=== PATIENT | male | born 1965 | race Caucasian/White ===

== ENCOUNTER 2016-03-16 10:25 | Emergency (ER) | payer OTHER ==
--- NOTE | 2016-03-16 11:40 | EDDOCDS ---
Nurse's Notes [facility] Name: Everett Pearson Age: 50 yrs Sex: Male : 1965 Arrival Date: 03/16/2016 Time: 10:25 Bed PD Private MD: NO PRIMARY PHYSICIAN, . Diagnosis: Crushing injury of right foot-WITH HEMATOMA Presentation: 03/16 10:29 Presenting complaint: Patient states: pain top of right foot. reports dropped trailer kr3 onto foot just prior to arrival to ED. Reports swelling to right foot began immediately. The patients lower extremity has obvious swelling present on examination. The patient has been moved to a treatment area. Adult Sepsis Screening: The patient does not have new or worsening altered mentation. Patient's respiratory rate is less than 22. Systolic blood pressure is greater than 100. Patient has a qSOFA score of 0- Negative Sepsis Screen. Suicide/Homicide risk assessment- the patient denies having any suicidal and/or homicidal ideations and does not present with any other emotional, behavioral or mental health complaints. 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 Transition of care: patient was not received from another setting of care. 10:29 Acuity: JULIANNA Level 4 kr3 10:29 Method Of Arrival: Wheelchair kr3 Triage Assessment: 10:31 General: Appears uncomfortable, Behavior is cooperative. Pain: Location: dorsum of kr3 right foot Pain currently is 5 out of 10 on a pain scale. Pt Declines HIV testing. Respiratory: Respiratory effort is even, unlabored. Derm: Skin is normal. Musculoskeletal: Capillary refill < 3 seconds other swelling to dorsum of right foot. 10:34 Injury Description: Abrasion sustained to dorsum of right foot. kr3 11:39 Musculoskeletal: No deficits noted. Reports. ml6 Historical: - Allergies: no known allergies; - Home Meds: 1. none - PMHx: none; - PSHx: right arm; - Social history: Smoking status: Patient states former smoker of tobacco. No barriers to communication noted, The patient speaks fluent Mongolian, Speaks appropriately for age. - Family history: Not pertinent. - : The pt / caregiver states he / she is not on anticoagulants. Home medication list is obtained from the patient. - Exposure Risk Screening:: None identified. Screenin:37 Screening information is obtained from the patient. Fall risk: No risks identified. ml6 Assistance ADL's: requires no assistance with activities of daily living. Abuse/DV Screen: The patient / caregiver reports he/she is: not in a situation that causes fear, pain or injury. Nutritional screening: No deficits noted. Advance Directives: Currently, there is no health care proxy. home support is adequate. Assessment: 11:37 General: Appears in no apparent distress, comfortable, Behavior is appropriate for age, ml6 cooperative. Pain: Denies pain. Neurological: No deficits noted. Level of Consciousness is awake, alert, Oriented to person, place, time. Cardiovascular: No deficits noted. Capillary refill < 3 seconds is brisk in bilateral fingers toes. Respiratory: No deficits noted. Airway is patent Respiratory effort is even, unlabored, Respiratory pattern is regular, symmetrical, Breath sounds are clear bilaterally. Musculoskeletal: Circulation, motion, and sensation intact Capillary refill < 3 seconds is brisk in bilateral fingers toes Range of motion intact in all extremities. No deformity noted Swelling absent Signs and Symptoms of Compartment Syndrome: no signs of compartment syndrome. Vital Signs: 10:28 BP 135 / 87; Pulse 59; Resp 16; Temp 98.8; Pulse Ox 97% ; Weight 88.9 kg; Height 5 ft. elp 11 in. (180.34 cm); Pain 5/10; 11:34 BP 127 / 68; Pulse 68; Resp 18; Temp 97.4(O); Pulse Ox 98% on R/A; Pain 0/10; ct3 10:28 Body Mass Index 27.34 (88.90 kg, 180.34 cm) elp Vitals: 10:28 Log In Time: March 16, 2016 at 10:26. elp ED Course: 10:27 Patient visited by Nichol Coe PCA. elp 10:27 Patient moved to Waiting elp 10:28 NO PRIMARY PHYSICIAN, . is Private Physician. elp 10:28 Patient visited by Nichol Coe PCA. elp 10:28 Patient moved to Pre RCE elp 10:31 Triage Initiated kr3 10:37 [facility] Carl[facility] dt4 10:37 Duane Jimenez MD is Attending Physician. dt4 10:37 Patient visited by Rubi Carlson PA-C. dt4 10:37 Patient moved to Triage 1 dsf 11:01 Patient moved to PD2 / 27 ct3 11:25 [facility] is Referral Physician. dt4 11:34 Patient visited by Laura Narayanan PCA. ct3 11:38 The patient / caregiver is instructed regarding the plan of care and ED course. ml6 11:38 No IV's were initiated during this patient's visit. No procedures done that require ml6 assistance. Order Results: There are currently no results for this order. Outcome: 11:26 Discharge ordered by Provider. dt4 11:38 Discharge Assessment: patient administered narcotics - no. The following High Risk ml6 Discharge criteria are identified: None. Discharged to home with crutches. Condition: stable. Discharge instructions given to patient, Instructed on discharge instructions, follow up and referral plans. medication usage, Demonstrated understanding of instructions, medications, Pt was receptive of discharge instructions/ teaching. Prescriptions given X 1. No special radiology studies were completed. Property :Personal belongings accompany Pt. 11:39 Patient left the ED. ml6 Signatures: Ro Betancourt,RN RN brien3 Brando Torres RN RN ml6 Laura Narayanan, ISSA TRANSMISSION AND COORDINATION ENGINEER ct3 Mya Gunderson RN RN [email or web address] [[email or web address]] Nichol Coe, TRANSMISSION AND COORDINATION ENGINEER TRANSMISSION AND COORDINATION ENGINEER Rubi Ba PA-C PA-C dt4 FRANCK
--- NOTE | 2016-03-16 11:40 | EDDOCDS ---
Physician Documentation [facility] Name: Everett Pearson Age: 50 yrs Sex: Male : 1965 Arrival Date: 03/16/2016 Time: 10:25 Bed PD Private MD: NO PRIMARY PHYSICIAN, . Disposition: 03/16/16 11:26 Discharged to Home/Self Care. Impression: Crushing injury of right foot - WITH HEMATOMA. - Condition is Stable. - Discharge Instructions: Crush Injury, Fingers or Toes. - Prescriptions for Ultram 50 mg Oral Tablet - take 1 tablet by ORAL route every 6 hours As needed MDD: 4 tabs; MAY CAUSE DROWSINESS. 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 - Medication Reconciliation, Local Pharmacy Hours form. - Follow up: Emergency Department; When: As needed; Reason: Worsening of conditions. Follow up: [facility]; When: Call to arrange an appointment; Reason: Recheck today's complaints, Continuance of care, To establish care. - Problem is new. - Symptoms are unchanged. - Notes: THERE WAS NO FRACTURE ON YOUR XRAYS TODAY. PLEASE USE THE CRUTCHES NEEDED FOR WEIGHT BEARING. START TO SLOWLY PUT WEIGHT ON THIS FOOT OVER THE NEXT FEW DAYS. KEEP THE JENARO WRAP ON WITH MODERATE COMPRESSION TO HELP THE SWELLING STAY MINIMAL. ANY WORSENING SYMPTOMS, PLEASE RETURN TO THE ER. Historical: - Allergies: no known allergies; - Home Meds: 1. none - PMHx: none; - PSHx: right arm; - Social history: Smoking status: Patient states former smoker of tobacco. No barriers to communication noted, The patient speaks fluent Togolese, Speaks appropriately for age. - Family history: Not pertinent. - : The pt / caregiver states he / she is not on anticoagulants. Home medication list is obtained from the patient. - Exposure Risk Screening:: None identified. Vital Signs: 03/16 10:28 BP 135 / 87; Pulse 59; Resp 16; Temp 98.8; Pulse Ox 97% ; Weight 88.9 kg / 195.99 lbs; elp Height 5 ft. 11 in. (180.34 cm); Pain 5/10; 11:34 BP 127 / 68; Pulse 68; Resp 18; Temp 97.4(O); Pulse Ox 98% on R/A; Pain 0/10; ct3 10:28 Body Mass Index 27.34 (88.90 kg, 180.34 cm) elp MDM: 10:34 Foot, Complete Ordered. EDMS 10:45 Financial registration complete. lg 11:24 Crutches ordered. dt4 11:24 Jenaro Wrap ordered. dt4 Signatures: Dispatcher [employer] EDRandy Otero, Tristian Reg lg Ro Betancourt,RN RN kr3 Brando Torres RN RN ml6 Rubi Carlson, PA-C PA-C dt4 MTDD
--- NOTE | 2016-03-16 14:36 | REP ---
Right foot series: Four views. History: Crush injury. Findings: Four views right foot demonstrate prominent soft tissue swelling dorsally over the tarsals and metatarsals on lateral film. Achilles and plantar calcaneal spurring are noted. Overall mineralization pattern is intact. No fracture is seen. Impression: Soft-tissue swelling. No fracture seen. Signed by Terry Tucker MD 03/16/2016 03:38 P
--- NOTE | 2016-03-18 12:47 | EDDOCDS ---
Physician Documentation [facility] Name: Everett Pearson Age: 50 yrs Sex: Male : 1965 Arrival Date: 03/16/2016 Time: 10:25 Bed PD Private MD: NO PRIMARY PHYSICIAN, . Disposition: 03/16/16 11:26 Discharged to Home/Self Care. Impression: Crushing injury of right foot - WITH HEMATOMA. - Condition is Stable. - Discharge Instructions: Crush Injury, Fingers or Toes. - Prescriptions for Ultram 50 mg Oral Tablet - take 1 tablet by ORAL route every 6 hours As needed MDD: 4 tabs; MAY CAUSE DROWSINESS. 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 - Medication Reconciliation, Local Pharmacy Hours form. - Follow up: Emergency Department; When: As needed; Reason: Worsening of conditions. Follow up: [facility]; When: Call to arrange an appointment; Reason: Recheck today's complaints, Continuance of care, To establish care. - Problem is new. - Symptoms are unchanged. - Notes: THERE WAS NO FRACTURE ON YOUR XRAYS TODAY. PLEASE USE THE CRUTCHES NEEDED FOR WEIGHT BEARING. START TO SLOWLY PUT WEIGHT ON THIS FOOT OVER THE NEXT FEW DAYS. KEEP THE JENARO WRAP ON WITH MODERATE COMPRESSION TO HELP THE SWELLING STAY MINIMAL. ANY WORSENING SYMPTOMS, PLEASE RETURN TO THE ER. Historical: - Allergies: no known allergies; - Home Meds: 1. none - PMHx: none; - PSHx: right arm; - Social history: Smoking status: Patient states former smoker of tobacco. No barriers to communication noted, The patient speaks fluent Dominican, Speaks appropriately for age. - Family history: Not pertinent. - : The pt / caregiver states he / she is not on anticoagulants. Home medication list is obtained from the patient. - Exposure Risk Screening:: None identified. Vital Signs: 03/16 10:28 BP 135 / 87; Pulse 59; Resp 16; Temp 98.8; Pulse Ox 97% ; Weight 88.9 kg / 195.99 lbs; elp Height 5 ft. 11 in. (180.34 cm); Pain 5/10; 11:34 BP 127 / 68; Pulse 68; Resp 18; Temp 97.4(O); Pulse Ox 98% on R/A; Pain 0/10; ct3 10:28 Body Mass Index 27.34 (88.90 kg, 180.34 cm) elp MDM: 10:34 Foot, Complete Ordered. EDMS 10:45 Financial registration complete. lg 11:24 Crutches ordered. dt4 11:24 Jenaro Wrap ordered. dt4 12:45 [place] [place] Agreement was scanned into [employer] and attached to record. lg 13:45 T-Sheet-- Draft Copy was scanned into MED[employer] and attached to record. se Signatures: Dispatcher [employer] EDNM Randy Mauricio, Reg Reg lg Ro Betancourt,RN RN kr3 Brando Torres, RN RN ml6 Rubi Carlson, NAUN MAGALLON dt4 Allie Overton The chart was reviewed and I authenticate all verbal orders and agree with the evaluation and treatment provided.Attachments: 12:45 [facility] Payment Agreement lg 13:45 T-Sheet-- Draft Copy [facility] Chart Complete MTDD
--- NOTE | 2016-03-18 12:47 | EDDOCDS ---
Physician Documentation [facility] Name: Everett Pearson Age: 50 yrs Sex: Male : 1965 Arrival Date: 03/16/2016 Time: 10:25 Bed PD Private MD: NO PRIMARY PHYSICIAN, . Disposition: 03/16/16 11:26 Discharged to Home/Self Care. Impression: Crushing injury of right foot - WITH HEMATOMA. - Condition is Stable. - Discharge Instructions: Crush Injury, Fingers or Toes. - Prescriptions for Ultram 50 mg Oral Tablet - take 1 tablet by ORAL route every 6 hours As needed MDD: 4 tabs; MAY CAUSE DROWSINESS. 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 - Medication Reconciliation, Local Pharmacy Hours form. - Follow up: Emergency Department; When: As needed; Reason: Worsening of conditions. Follow up: [facility]; When: Call to arrange an appointment; Reason: Recheck today's complaints, Continuance of care, To establish care. - Problem is new. - Symptoms are unchanged. - Notes: THERE WAS NO FRACTURE ON YOUR XRAYS TODAY. PLEASE USE THE CRUTCHES NEEDED FOR WEIGHT BEARING. START TO SLOWLY PUT WEIGHT ON THIS FOOT OVER THE NEXT FEW DAYS. KEEP THE JENARO WRAP ON WITH MODERATE COMPRESSION TO HELP THE SWELLING STAY MINIMAL. ANY WORSENING SYMPTOMS, PLEASE RETURN TO THE ER. Historical: - Allergies: no known allergies; - Home Meds: 1. none - PMHx: none; - PSHx: right arm; - Social history: Smoking status: Patient states former smoker of tobacco. No barriers to communication noted, The patient speaks fluent Maltese, Speaks appropriately for age. - Family history: Not pertinent. - : The pt / caregiver states he / she is not on anticoagulants. Home medication list is obtained from the patient. - Exposure Risk Screening:: None identified. Vital Signs: 03/16 10:28 BP 135 / 87; Pulse 59; Resp 16; Temp 98.8; Pulse Ox 97% ; Weight 88.9 kg / 195.99 lbs; elp Height 5 ft. 11 in. (180.34 cm); Pain 5/10; 11:34 BP 127 / 68; Pulse 68; Resp 18; Temp 97.4(O); Pulse Ox 98% on R/A; Pain 0/10; ct3 10:28 Body Mass Index 27.34 (88.90 kg, 180.34 cm) elp MDM: 10:34 Foot, Complete Ordered. EDMS 10:45 Financial registration complete. lg 11:24 Crutches ordered. dt4 11:24 Jenaro Wrap ordered. dt4 12:45 [place] [place] Payment Agreement was scanned into MEDHOST and attached to record. lg 13:45 T-Sheet-- Draft Copy was scanned into MEDHOST and attached to record. se Signatures: Dispatcher [employer] EDME Randy Mauricio, Reg Reg lg Ro Betancourt,RN RN kr3 Brando Torres, RN RN ml6 Rubi Carlson, NAUN MAGALLON dt4 Allie Overton The chart was reviewed and I authenticate all verbal orders and agree with the evaluation and treatment provided.Attachments: 12:45 [place] Payment Agreement lg 13:45 T-Sheet-- Draft Copy [facility] Chart Complete MTDD
--- NOTE | 2016-03-18 12:47 | EDDOCDS ---
Nurse's Notes [facility] Name: Everett Pearson Age: 50 yrs Sex: Male : 1965 Arrival Date: 03/16/2016 Time: 10:25 Bed PD Private MD: NO PRIMARY PHYSICIAN, . Diagnosis: Crushing injury of right foot-WITH HEMATOMA Presentation: 03/16 10:29 Presenting complaint: Patient states: pain top of right foot. reports dropped trailer kr3 onto foot just prior to arrival to ED. Reports swelling to right foot began immediately. The patients lower extremity has obvious swelling present on examination. The patient has been moved to a treatment area. Adult Sepsis Screening: The patient does not have new or worsening altered mentation. Patient's respiratory rate is less than 22. Systolic blood pressure is greater than 100. Patient has a qSOFA score of 0- Negative Sepsis Screen. Suicide/Homicide risk assessment- the patient denies having any suicidal and/or homicidal ideations and does not present with any other emotional, behavioral or mental health complaints. Status: Patient is not a service writer or dependent. Transition of care: patient was not received from another setting of care. 10:29 Acuity: JULIANNA Level 4 kr3 10:29 Method Of Arrival: Wheelchair kr3 Triage Assessment: 10:31 General: Appears uncomfortable, Behavior is cooperative. Pain: Location: dorsum of kr3 right foot Pain currently is 5 out of 10 on a pain scale. Pt Declines HIV testing. Respiratory: Respiratory effort is even, unlabored. Derm: Skin is normal. Musculoskeletal: Capillary refill < 3 seconds other swelling to dorsum of right foot. 10:34 Injury Description: Abrasion sustained to dorsum of right foot. kr3 11:39 Musculoskeletal: No deficits noted. Reports. ml6 Historical: - Allergies: no known allergies; - Home Meds: 1. none - PMHx: none; - PSHx: right arm; - Social history: Smoking status: Patient states former smoker of tobacco. No barriers to communication noted, The patient speaks fluent Czech, Speaks appropriately for age. - Family history: Not pertinent. - : The pt / caregiver states he / she is not on anticoagulants. Home medication list is obtained from the patient. - Exposure Risk Screening:: None identified. Screenin:37 Screening information is obtained from the patient. Fall risk: No risks identified. ml6 Assistance ADL's: requires no assistance with activities of daily living. Abuse/DV Screen: The patient / caregiver reports he/she is: not in a situation that causes fear, pain or injury. Nutritional screening: No deficits noted. Advance Directives: Currently, there is no health care proxy. home support is adequate. Assessment: 11:37 General: Appears in no apparent distress, comfortable, Behavior is appropriate for age, ml6 cooperative. Pain: Denies pain. Neurological: No deficits noted. Level of Consciousness is awake, alert, Oriented to person, place, time. Cardiovascular: No deficits noted. Capillary refill < 3 seconds is brisk in bilateral fingers toes. Respiratory: No deficits noted. Airway is patent Respiratory effort is even, unlabored, Respiratory pattern is regular, symmetrical, Breath sounds are clear bilaterally. Musculoskeletal: Circulation, motion, and sensation intact Capillary refill < 3 seconds is brisk in bilateral fingers toes Range of motion intact in all extremities. No deformity noted Swelling absent Signs and Symptoms of Compartment Syndrome: no signs of compartment syndrome. Vital Signs: 10:28 BP 135 / 87; Pulse 59; Resp 16; Temp 98.8; Pulse Ox 97% ; Weight 88.9 kg; Height 5 ft. elp 11 in. (180.34 cm); Pain 5/10; 11:34 BP 127 / 68; Pulse 68; Resp 18; Temp 97.4(O); Pulse Ox 98% on R/A; Pain 0/10; ct3 10:28 Body Mass Index 27.34 (88.90 kg, 180.34 cm) elp Vitals: 10:28 Log In Time: March 16, 2016 at 10:26. elp ED Course: 10:27 Patient visited by Nichol Coe PCA. elp 10:27 Patient moved to Waiting elp 10:28 NO PRIMARY PHYSICIAN, . is Private Physician. elp 10:28 Patient visited by Nichol Coe PCA. elp 10:28 Patient moved to Pre RCE elp 10:31 Triage Initiated kr3 10:37 [facility] Carl[facility]. dt4 10:37 Duane Jimenez MD is Attending Physician. dt4 10:37 Patient visited by Rubi Carlson PA-C. dt4 10:37 Patient moved to Triage 1 dsf 11:01 Patient moved to PD2 / ct3 11:25 [facility] is Referral Physician. dt4 11:34 Patient visited by Laura Narayanan PCA. ct3 11:38 The patient / caregiver is instructed regarding the plan of care and ED course. ml6 11:38 No IV's were initiated during this patient's visit. No procedures done that require ml6 assistance. 12:40 Patient name changed from Everett\S\A\S\Rubyor\S\ to Everett\S\Baudilio\S\Rubyor. EDMS 12:45 [place] Payment Agreement was scanned into Bookit[employer] and attached to record. 13:45 T-Sheet-- Draft Copy was scanned into Bookitit and attached to record. [facility] 14:39 Foot, Complete Returned. EDMS Order Results: Radiology Order: Foot, Complete Test: Foot, Complete REASON FOR EXAMINATION: crush injury; Right foot series: Four views.; ; History: Crush injury.; ; Findings: Four views right foot demonstrate prominent soft tissue swelling; dorsally over the tarsals and metatarsals on lateral film. Achilles and plantar; calcaneal spurring are noted. Overall mineralization pattern is intact. No; fracture is seen.; ; Impression:; ; Soft-tissue swelling. No fracture seen.; ; ; Signed by; Terry Tucker MD 03/16/2016 03:38 P; Outcome: 11:26 Discharge ordered by Provider. dt4 11:38 Discharge Assessment: patient administered narcotics - no. The following High Risk ml6 Discharge criteria are identified: None. Discharged to home with crutches. Condition: stable. Discharge instructions given to patient, Instructed on discharge instructions, follow up and referral plans. medication usage, Demonstrated understanding of instructions, medications, Pt was receptive of discharge instructions/ teaching. Prescriptions given X 1. No special radiology studies were completed. Property :Personal belongings accompany Pt. 11:39 Patient left the ED. ml6 Signatures: Dispatcher [employer] EDKY Randy Mauricio Reg Reg lg Robie, Kathleen, RN RN kr3 Barndo Torres RN RN ml6 Laura Narayanan PCA SYSTEMS PLANNER ct3 Mya Gunderson RN RN dsf Patchen, Erin, PCA PCA elp Rubi Carlson, PA-C PA-C dt4 Allie Overton Chart Complete MTDD
== END 2016-03-16 11:39 | disposition home or self-care (01) ==
LOC: M ED 10:25
DX: S97.81XA Crushing injury of right foot, initial encounter (principal); W22.8XXA Striking against or struck by other objects, initial encounter; Y92.89 Other specified places as the place of occurrence of the external cause; Y93.89 Activity, other specified; Y99.8 Other external cause status; Z87.891 Personal history of nicotine dependence

== ENCOUNTER → 2018-05-30 | Outpatient (CLI) | payer OTHER ==
--- NOTE | 2018-05-30 15:00 | REP ---
CHEST, TWO VIEWS: There is no evidence of acute infiltrate. No pleural effusion is seen. The heart is normal in size. The mediastinal silhouette is unremarkable. The visualized osseous structures are intact. IMPRESSION: No acute pulmonary disease. Electronically Signed by Ric Mcginnis MD 05/30/2018 06:20 P
== END ==
LOC: M RAD 12:29
PROVIDERS: ATTEND Nurse Practitioner Family
DX: R05 Cough (principal)

== ENCOUNTER 2018-09-25 09:04 | Emergency (ER) | payer MEDICAID, OTHER ==
[~2018-09-25] VITALS: Ht 180.3 cm; Wt 93.2 kg
[2018-09-25 09:47] LABS: BASO % 0.4 % (0.0-1.0); EOS # 0.4 10^3/uL (0.0-0.50); EOS % 5.8 % (0.0-3.0); HEMATOCRIT 48.5 % (42.0-52.0); HEMOGLOBIN 15.7 g/dl (13.5-17.5); LYMPH # 1.1 10^3/uL (1.5-4.5); LYMPH % 14.9 % (24.0-44.0); MEAN CORPUSCULAR HEMOGLOBIN 30.8 pg (27.0-33.0); MEAN CORPUSCULAR HGB CONC 32.4 g/dl (32.0-36.5); MEAN CORPUSCULAR VOLUME 95.3 fl (80.0-96.0); MONO # 0.5 10^3/uL (0.0-0.8); MONO % 7.5 % (0.0-5.0); NEUTROPHILS # 5.1 10^3/uL (1.8-7.7); NEUTROPHILS % 71.1 % (36.0-66.0); PLATELET COUNT, AUTOMATED 200 10^3/uL (150-450); RED BLOOD COUNT 5.09 10^6/uL (4.30-6.10); WHITE BLOOD COUNT 7.2 10^3/uL (4.0-10.0)
--- NOTE | 2018-09-25 10:08 | REP ---
CHEST SINGLE VIEW: There is no evidence of acute infiltrate. No pleural effusion is seen. The heart is normal in size. The mediastinal silhouette is unremarkable. The visualized osseous structures are intact. IMPRESSION: No acute pulmonary disease. Electronically Signed by Ric Mcginnis MD 09/26/2018 09:18 P
[2018-09-25 10:15] LABS: ALBUMIN 3.7 GM/DL (3.2-5.2); ALT/SGPT 40 U/L (12-78); BILIRUBIN,DIRECT < 0.1 MG/DL (0.0-0.2); BILIRUBIN,TOTAL 0.3 MG/DL (0.2-1.0); BLOOD UREA NITROGEN 17 MG/DL (7-18); CALCIUM LEVEL 8.4 MG/DL (8.5-10.1); CARBON DIOXIDE LEVEL 25 MEQ/L (21-32); CHLORIDE LEVEL 108 MEQ/L (98-107); CK-MB VALUE MASS 11.1 NG/ML (<3.6); CPK CREATINE PHOSPHOKINASE 912 U/L (39-308); CREATININE FOR GFR 0.88 MG/DL (0.70-1.30); GLOMERULAR FILTRATION RATE > 60.0 (>56); GLUCOSE, FASTING 135 MG/DL (70-100); MB/CK RELATIVE INDEX 1.22 (< OR =4); NT-PRO BNP 119 PG/ML (<125); SODIUM LEVEL 141 MEQ/L (136-145); TOTAL PROTEIN 7.5 GM/DL (6.4-8.2); TROPONIN I < 0.02 NG/ML (< 0.10)
[2018-09-25] MEDS ORDERED: IPRATROPIUM 0.5MG/ALBUTEROL 2.5MG INH SOL UD 3ML (DUONEB)(J7620) NEB ONE ×2 (10:15→11:30)
[2018-09-25] MEDS ORDERED: ALBUTEROL SULFATE 2.5 MG/0.5 ML INH NEB SOLN NEB ONE (10:15)
[2018-09-25] MEDS ORDERED: ISOVUE-370 76% 100ML VIAL (Q9967) As Ordered ONE (10:26)
[2018-09-25] MEDS ORDERED: NS 1,000 ML IV ONE (11:30)
[2018-09-25] MEDS ORDERED: MOXIFLOXACIN HCL 400 MG in APPROPRIATE DILUENT 1 EA IV ONE (11:45)
[2018-09-25] MEDS ORDERED: methylPREDNISolone INJ 40 MG/1 ML VIAL (J2920) IV ONE (11:45)
[2018-09-25] MEDS ORDERED: EPIN11.7 IH (11:48)
[2018-09-25] MEDS ORDERED: PROAAER10 INH (11:48)
[2018-09-25] MEDS ORDERED: CEFU50TA PO (11:48)
--- NOTE | 2018-09-25 11:56 | REP ---
CT NECK WITH IV CONTRAST: CT neck performed following the intravenous administration of 100 mL of Isovue 370. Sagittal and coronal reconstruction images are performed. Airway is widely patent with no significant narrowing. Scattered subcentimeter lymph nodes are seen in the neck soft tissues bilaterally without significant adenopathy. Parotid and submandibular glands are unremarkable as is the thyroid. Note is made of diffuse opacification of bilateral ethmoid sinuses consistent with significant sinusitis. There is also mild fluid in both maxillary sinuses. There is mild mucosal thickening in the sphenoid and frontal sinuses. IMPRESSION: Airway widely patent. No significant airway narrowing. No evidence of epiglottitis. Significant ethmoid sinusitis with mild bilateral maxillary sinusitis. There is also mild mucosal thickening in the frontal and sphenoid sinuses. Electronically Signed by Ric Mcginnis MD 09/26/2018 09:23 P
--- NOTE | 2018-09-25 12:02 | REP ---
CT ANGIOGRAM CHEST: TECHNIQUE: Axial contrast enhanced images from the thoracic inlet to the upper abdomen using 100 mL Isovue 370 intravenous contrast material with multiplanar reformations. The study is limited due to patient breathing motion. No gross central pulmonary embolism is seen. There is no thoracic aortic aneurysm or dissection. I do not see significant mediastinal, hilar, or chest wall lymphadenopathy. The heart is normal in size. There is no pleural or pericardial effusion. In the lingula inferiorly, there is a small patch of parenchymal opacity representing atelectasis or infiltrate. Visualized upper abdominal structures are grossly unremarkable. IMPRESSION: Limited exam due to patient breathing motion. No central pulmonary embolism. Focal patch of atelectasis or infiltrate in the lingula. Electronically Signed by Ric Mcginnis MD 09/26/2018 09:36 P
[2018-09-25 13:27] VITALS: BP 145/69
[2018-09-25] MEDS ORDERED: MOXI1TAB PO (13:31)
[2018-09-25] MEDS ORDERED: PRED20TA PO (13:31)
--- NOTE | 2018-09-25 19:16 | ECGEPIP ---
[facility] - ED Test Date: 2018-09-25 Pat Name: TOMÁS ORJO Department: Room: - Gender: Male [employer]: : 1965 Requested By: Duane Jimenez Order Number: [id number] Reading MD: Duane Jimenez Measurements Intervals Hoven Rate: 69 P: 54 ID: [id number] QRS: 59 QRSD: 103 T: 66 QT: 419 QTc: 450 Interpretive Statements SINUS RHYTHM NONSPECIFIC ST T WAVE CHANGES BASELINE ARTIFACT MAY AFFECT READING BASELINE WANDERING MAY AFFECT READING IVCD NO PRIOR ECG FOR COMPARISON Electronically Signed on 09-25-2018 19:15:55 EDT by Duane Jimenez
== END 2018-09-25 13:41 | disposition home or self-care (01) ==
LOC: M ED 09:56
DX: J45.909 Unspecified asthma, uncomplicated (principal); R06.00 Dyspnea, unspecified; J18.9 Pneumonia, unspecified organism; I45.4 Nonspecific intraventricular block; E11.9 Type 2 diabetes mellitus without complications; Z72.0 Tobacco use; Z79.899 Other long term (current) drug therapy
CPT/HCPCS: 36600; 70491; 71045; 71275; 80048; 80076; 82550; 82553; 82803; 83605; 83880; 84436; 84443; 85025; 87040; 87486; 87581; 87633; 87798; 93005; 93041; 94640; 96365; 96375; 99285; J2280; J2920; Q9967

== ENCOUNTER 2018-10-30 16:42 | Emergency (ER) | payer MEDICAID ==
[~2018-10-30] VITALS: Ht 182.9 cm; Wt 95.7 kg
[~2018-10-30 16:42] MED LIST: CEFU50TA PO; EPIN11.7 IH; MOXI1TAB PO; PRED20TA PO; PROAAER10 INH
[2018-10-30] MEDS: FLUORESCEIN OPHTH 1 MG STRIP OU ONE (17:29)
[2018-10-30] MEDS: TETRACAINE 0.5% OPHTH SOLN 4ML XX ONE (17:29)
[2018-10-30] MEDS ORDERED: OCUF0.25 OP (17:50)
[2018-10-30] MEDS ORDERED: ARTIDRO2 OP (17:50)
[2018-10-30 18:20] VITALS: BP 138/81
== END 2018-10-30 18:30 | disposition home or self-care (01) ==
LOC: M ED 16:42
DX: H16.133 Photokeratitis, bilateral (principal); E11.9 Type 2 diabetes mellitus without complications

== ENCOUNTER 2019-07-09 08:41 | Inpatient (IN) | payer MEDICAID, OTHER ==
[~2019-07-09] VITALS: Ht 179.1 cm; Wt 99.8 kg
[~2019-07-09 08:41] MED LIST changes: +OCUF0.25 OP; +POLYOPD OP
[2019-07-09] MEDS: COMBIVENT RESPIMAT 100-20MCG INHALER 4GM INH PRN ×4 (09:20→09:40)
--- NOTE | 2019-07-09 09:28 | REP ---
Clinical: Cough and dyspnea . Comparison: 09/25/2018 . Findings: The mediastinum and cardiac silhouette are stable and within normal limits for portable technique. The lung moran are clear without acute consolidation, effusion, or pneumothorax. Skeletal structures are intact. Impression: No acute cardiopulmonary process appreciated. Electronically Signed by Geo Cueva MD 07/09/2019 09:20 A
[2019-07-09] MEDS ORDERED: dexameTHASONE 20MG/5ML VIAL (J1100 PER 1MG) IV ONE (09:30)
[2019-07-09 09:39] LABS: BASO % 0.3 % (0.0-1.0); EOS # 0.6 10^3/uL (0.0-0.5); EOS % 8.3 % (0.0-3.0); HEMATOCRIT 50.8 % (42.0-52.0); HEMOGLOBIN 16.4 g/dl (13.5-17.5); LYMPH # 1.6 10^3/uL (1.5-5.0); LYMPH % 24.4 % (24.0-44.0); MEAN CORPUSCULAR HEMOGLOBIN 30.9 pg (27.0-33.0); MEAN CORPUSCULAR HGB CONC 32.3 g/dl (32.0-36.5); MEAN CORPUSCULAR VOLUME 95.8 fl (80.0-96.0); MONO # 0.5 10^3/uL (0.0-0.8); MONO % 7.4 % (0.0-5.0); NEUTROPHILS % 59.3 % (36.0-66.0); PLATELET COUNT, AUTOMATED 238 10^3/uL (150-450); WHITE BLOOD COUNT 6.7 10^3/uL (4.0-10.0)
[2019-07-09 10:10] LABS: ALBUMIN 3.5 GM/DL (3.2-5.2); ALT/SGPT 40 U/L (12-78); BILIRUBIN,DIRECT 0.1 MG/DL (0.0-0.2); BILIRUBIN,TOTAL 0.5 MG/DL (0.2-1.0); BLOOD UREA NITROGEN 13 MG/DL (7-18); CALCIUM LEVEL 8.4 MG/DL (8.5-10.1); CARBON DIOXIDE LEVEL 29 MEQ/L (21-32); CHLORIDE LEVEL 107 MEQ/L (98-107); CK-MB VALUE MASS 4.3 NG/ML (<3.6); CPK CREATINE PHOSPHOKINASE 323 U/L (39-308); CREATININE FOR GFR 0.83 MG/DL (0.70-1.30); GLOMERULAR FILTRATION RATE > 60.0 (>56); GLUCOSE, FASTING 134 MG/DL (70-100); MB/CK RELATIVE INDEX 1.33 (< OR =4); NT-PRO BNP 14 PG/ML (<125); POTASSIUM SERUM 4.5 MEQ/L (3.5-5.1); SODIUM LEVEL 142 MEQ/L (136-145); TOTAL PROTEIN 7.4 GM/DL (6.4-8.2); TROPONIN I < 0.02 NG/ML (< 0.10)
[2019-07-09 12:23] VITALS: O2SAT 92
[2019-07-09] MEDS ORDERED: PROAAER10 INH (12:55)
[2019-07-09] MEDS ORDERED: IPRATROPIUM 0.5MG/ALBUTEROL 2.5MG INH SOL UD 3ML (DUONEB)(J7620) NEB PRN (13:00)
[2019-07-09] MEDS ORDERED: ISOVUE-370 76% 100ML VIAL As Ordered ONE (13:26)
[2019-07-09 13:58] LABS: HEMOGLOBIN A1c 7.1 %
--- NOTE | 2019-07-09 13:59 | REP ---
Clinical: Acute chest pain and shortness of breath . Technique: Axial contrast enhanced images from the thoracic inlet to the upper abdomen using 75 ml Isovue 370 intravenous contrast material with coronal and sagittal re-formations. Comparison: 09/25/2018 Findings: Satisfactory enhancement of the pulmonary vasculature is achieved and no filling defects are identified to suggest pulmonary embolus. Thoracic aorta is normal caliber without aneurysm or dissection. Heart and pericardium are normal. Mildly prominent mediastinal and bilateral hilar adenopathy is suggested of uncertain etiology. The bilateral lung moran are relatively well aerated and without focal consolidation, obvious nodule or mass lesion. No pleural effusion. No pneumothorax. Tracheobronchial tree is patent. Impression: No evidence for pulmonary embolus. No acute pleuroparenchymal or mediastinal process. Mildly prominent mediastinal and hilar adenopathy of uncertain etiology. Consider short-term 3-6 month follow-up reevaluation. Electronically Signed by Geo Cueva MD 07/09/2019 01:50 P
[2019-07-09] MEDS ORDERED: MONTELUKAST 10 MG TAB PO ONE (14:00)
[2019-07-09] MEDS: IPRATROPIUM 0.5MG/ALBUTEROL 2.5MG INH SOL UD 3ML (DUONEB)(J7620) NEB SCH ×3 (14:27→23:26)
[2019-07-09 14:49] LABS: CPK CREATINE PHOSPHOKINASE 287 U/L (39-308); MB/CK RELATIVE INDEX 1.39 (< OR =4); TROPONIN I < 0.02 NG/ML (< 0.10)
[2019-07-09 15:45] VITALS: BP 142/64
[2019-07-09] MEDS: methylPREDNISolone INJ 125 MG/2 ML VIAL (J2930) IV SCH ×2 (16:09→22:57)
--- NOTE | 2019-07-09 17:54 | HPE ---
DATE OF ADMISSION: 07/09/2019 CHIEF COMPLAINT: Shortness of breath. HISTORY OF PRESENT ILLNESS: This is a 53-year-old male with prior history of diabetes, diet controlled, not on any medications, prior history of three packs a day smoking. Quit about 20 years ago. Was due to have pulmonary function tests (PFTs) done as outpatient last year due to shortness of breath experienced occasionally, requiring treatment with prednisone and inhalers and antibiotics but missed it because her sister got sick with cancer. Since then, patient has not had any followup with a animal shelter clerk and never had any pulmonary function testing done as outpatient. He now presents to the emergency room after recurrent shortness of breath with dyspnea on exertion, recently seen at [facility] about 2 weeks ago and given an inhaler and antibiotics due to overt wheezing. Patient now presents with worsening symptoms despite 2-hour inhaler treatment at home. No fever or chills but has a cough productive of white sputum, which has changed. Patient was raking outside, when he developed a shortness of breath which worsened about 3 weeks ago. Now he has dyspnea on exertion. Unable to sleep. He is able to walk about 25 feet but has had significant trouble breathing. Saturation was 89% on room air in the emergency room (ER). Chest x-ray was clear with no signs of infection, consolidation, infiltrate, pulmonary edema, or pneumothorax. BNP was 14. Cardiac markers: Troponin was less than 0.02, and EKG was normal, sinus rhythm, ventricular rate of [address]-T-wave changes. Hospitalist was called to admit for reactive airway disease, potentially chronic obstructive pulmonary disease (COPD) versus asthma. Patient says that he has had some improvement with nebulizer in the emergency room. He is saturating 92% on room air currently. Patient otherwise denies any nausea, vomiting, diarrhea, abdominal pain, headaches, changes in vision, rhinorrhea, coryza, chest pain, pressure, or tightness, palpitations, lightheadedness, or dizziness. No prior history of coronary artery disease (CAD), myocardial infarction ([place]), or congestive heart failure. No lower extremity edema paresthesias or weakness. Patient denies any bright red blood per rectum, melena, or black, tarry stools. Denies polyuria or polydipsia. Had a prior history of diabetes but no on medications and has been diet controlled. Denies any dysuria, urgency, frequency, anxiety, depression. No over-the counter use of medications. Patient denied any exposure to birds, recent travel, or exposure to anyone with COVID-19. PAST MEDICAL HISTORY: 1. Prior history of diabetes, but that has been diet controlled, on no medications. 2. Obesity, body mass index (BMI) of 30.9. 3. Hypertension, not on medications. PAST SURGICAL HISTORY: Right humeral fracture as a child. ALLERGIES: No known drug allergies. HOME MEDICATIONS: - inhaler, albuterol 2 puffs every 4 hours - Completed antibiotics. He does not remember what antibiotic was given to him. ALLERGIES: No known drug allergies. FAMILY HISTORY: Father , age 49, coronary artery disease (CAD), myocardial infarction ([place]). Mother alive with diabetes. Son with asthma. Four sisters are healthy. One son, one daughter. Works in construction. Currently unemployed. Previously smoked three packs a day of cigarettes. Quit about 20 years ago. Worked in construction. is the healthcare proxy. He is a full code. REVIEW OF SYSTEMS: Per history of present illness (HPI). A 12-point system otherwise negative. PHYSICAL EXAMINATION: Temperature 98.0, pulse 72, respiratory rate 24, blood pressure 195/99, 89% on room air. GENERAL: Patient is awake, alert, oriented times three. Missing some teeth. Poor dentition. No jugular venous distention (JVD), thyromegaly. No pallor or icterus. Patient does have a 5-6 word conversational dyspnea. No use of respiratory accessory muscles. LUNGS: Diminished. Bilateral wheezing. HEART: S1, S2, sinus rhythm. No murmurs, rubs, or gallops. ABDOMEN: Obese, soft, nontender, nondistended. EXTREMITIES: No cyanosis, clubbing, or pitting edema EKG: Sinus rhythm, ventricular rate of 72, HI interval 153, QRS 102, QT3 of 89, QTC 412. White count 6.7, hemoglobin 60, hematocrit 50, platelet count 238, 59% neutrophils, 8.3 eosinophils. Sodium 142, potassium 4.5, chloride 107, bicarbonate 29, BUN 13, creatinine 0.83, glucose of 134. Lactic acid 1.4, calcium 8.4. Total bilirubin 0.5, direct bilirubin 0.1, ALT 40, alkaline phosphatase 119. Total CK 323, MB fraction 4.3, relative index 1.33, troponin less than 0.02. BNP of 14. Total protein 7.4, albumin 3.5. COVID-19 is pending. Blood culture pending. Respiratory panel is negative. COVID-19 pending. Sputum Gram stain pending. Chest x-ray: No acute cardiopulmonary disease. ASSESSMENT AND PLAN: This is a 53-year-old male with a prior history of type 2 diabetes, diet controlled, on no medications, hypertension, obesity, body mass index (BMI) of 30.9 with probably obstructive sleep apnea, 30 pack-year history of smoking. Quit 20 years ago. Missed his appointment for PFTs at [facility] a year ago, presents to the emergency room with multiple episodes of shortness of breath for the past 3 weeks, treated at [facility] 2 weeks ago with antibiotics and inhaler with worsening symptoms. ACUTE ISSUES: 1. Reactive airway disease. Most likely secondary to COPD, acute onset with bronchitis versus asthma. Patient currently improved, on nebulizer treatments and Decadron. He will be continued on Solu-Medrol, nebulizer treatments, and oxygen saturation to be kept at 88% to 92%. Discontinue oxygen if oxygen saturation is greater than 88% on room air with ambulation. Patient will be given Flovent, IV Solu-Medrol 80 every 6 hours. No antibiotics, as patient has no signs of acute infectious process. 2. Exertional dyspnea, most likely related to asthma or COPD. Will need PFTs as outpatient due to history of smoking. We are also concerned about ischemic heart disease due to risk factor of age over 52, being male gender, BMI of 30, as well as prior history of smoking and diabetes. Therefore, will check A1c level, better control the patient's blood pressure. If persistently over 130, will need an antihypertensive medication, most likely hydrochlorothiazide or an angiotensin receptor tamir (ARB). 3. Prior history of diabetes. Will check A1c. Patient's glucose at this time prior to Decadron being given is 134. Patient may be diabetic. Will change the diet if A1c is greater than 6.5 and will need to add insulin sliding scale with before food/at bedtime fingersticks with coverage. 4. Obesity, BMI of 30.9. Will check lipid panel. Thyroid-stimulating hormone (TSH) is normal. Will check A1c to rule out metabolic syndrome. Patient is at risk of obstructive sleep apnea and cor pulmonale. Therefore, patient should have a sleep study as outpatient. 5. Abnormal cardiac markers. EKG has no acute ischemic changes. Therefore, will cycle cardiac markers every 8 hours or every 6 hours, depending on patient's ischemic symptoms. He does have risk factors for heart disease, being male gender, BMI of 30, prior history of diabetes, smoking, and hypertension with family history of CAD/[place] with his father dying at the age of 49. 6. Deep vein thrombosis (DVT) prophylaxis with compression stockings. MTDD
[2019-07-09] MEDS: FLUTICASONE HFA 110 MCG 12 GM INHALER (FLOVENT) INH SCH (19:24)
--- NOTE | 2019-07-09 19:29 | ECGEPIP ---
[facility] - ED Test Date: 2019-07-09 Pat Name: TOMÁS ROJO Department: Room: [place] [address] Gender: Male Early Morning: martell : 1965 Requested By: MARK REESE Order Number: [id number] Reading MD: Duane Jimenez Measurements Intervals [place] Rate: 72 P: 42 [place]: 153 QRS: 53 QRSD: 102 T: 60 QT: 389 QTc: 426 Interpretive Statements SINUS RHYTHM NONSPECIFIC ST T WAVE CHANGES IVCD 09/25/[address] T WAVE CHANGES Electronically Signed on 07-09-2019 19:29:30 EDT by Duane Jimenez
[2019-07-09 21:37] LABS: CPK CREATINE PHOSPHOKINASE 268 U/L (39-308); MB/CK RELATIVE INDEX 1.49 (< OR =4); TROPONIN I < 0.02 NG/ML (< 0.10)
[2019-07-09 22:00] VITALS: BP 132/82
[2019-07-10] MEDS: IPRATROPIUM 0.5MG/ALBUTEROL 2.5MG INH SOL UD 3ML (DUONEB)(J7620) NEB SCH ×6 (02:55→23:34)
[2019-07-10] MEDS: methylPREDNISolone INJ 125 MG/2 ML VIAL (J2930) IV SCH ×4 (04:13→21:45)
[2019-07-10 05:33] LABS: BASO % 0.1 % (0.0-1.0); HEMATOCRIT 44.8 % (42.0-52.0); HEMOGLOBIN 15.1 g/dl (13.5-17.5); LYMPH # 0.8 10^3/uL (1.5-5.0); LYMPH % 8.5 % (24.0-44.0); MEAN CORPUSCULAR HEMOGLOBIN 31.8 pg (27.0-33.0); MEAN CORPUSCULAR HGB CONC 33.7 g/dl (32.0-36.5); MEAN CORPUSCULAR VOLUME 94.3 fl (80.0-96.0); MONO # 0.2 10^3/uL (0.0-0.8); MONO % 1.9 % (0.0-5.0); NEUTROPHILS # 8.6 10^3/uL (1.5-8.5); NEUTROPHILS % 89.1 % (36.0-66.0); PLATELET COUNT, AUTOMATED 255 10^3/uL (150-450); RED BLOOD COUNT 4.75 10^6/uL (4.30-6.10); WHITE BLOOD COUNT 9.7 10^3/uL (4.0-10.0)
[2019-07-10 05:56] LABS: CHOLESTEROL RISK RATIO 4.196 (<5)
[2019-07-10 06:00] VITALS: BP 141/80
[2019-07-10 06:13] LABS: BLOOD UREA NITROGEN 20 MG/DL (7-18); CALCIUM LEVEL 8.7 MG/DL (8.5-10.1); CARBON DIOXIDE LEVEL 26 MEQ/L (21-32); CHLORIDE LEVEL 106 MEQ/L (98-107); CPK CREATINE PHOSPHOKINASE 224 U/L (39-308); CREATININE FOR GFR 0.89 MG/DL (0.70-1.30); GLOMERULAR FILTRATION RATE > 60.0 (>56); GLUCOSE, FASTING 204 MG/DL (70-100); MB/CK RELATIVE INDEX 1.79 (< OR =4); POTASSIUM SERUM 3.6 MEQ/L (3.5-5.1); SODIUM LEVEL 139 MEQ/L (136-145); TROPONIN I < 0.02 NG/ML (< 0.10)
[2019-07-10] MEDS: FLUTICASONE HFA 110 MCG 12 GM INHALER (FLOVENT) INH SCH ×2 (07:10→19:38)
[2019-07-10] MEDS: MONTELUKAST 10 MG TAB PO SCH (08:50)
[2019-07-10] MEDS ORDERED: guaiFENesin DM LIQ 10ML UD PO ONE (09:00)
[2019-07-10 09:22] LABS: THYROID STIMULATING HORMONE 0.538 uIU/ML (0.358-3.740)
[2019-07-10 14:00] VITALS: BP 174/74
[2019-07-10 14:35] LABS: CK-MB VALUE MASS 4.9 NG/ML (<3.6); CPK CREATINE PHOSPHOKINASE 266 U/L (39-308); MB/CK RELATIVE INDEX 1.84 (< OR =4); TROPONIN I < 0.02 NG/ML (< 0.10)
[2019-07-10] MEDS: guaiFENesin DM LIQ 10ML UD PO PRN ×2 (15:29→21:45)
[2019-07-10] MEDS ORDERED: PRED10TA2 PO (15:47)
[2019-07-10] MEDS ORDERED: MONT10TA4 PO (15:47)
[2019-07-10] MEDS ORDERED: FLUT11IN INH (15:47)
[2019-07-10] MEDS ORDERED: QVAR40AE12 INH (16:03)
[2019-07-10 22:00] VITALS: BP 138/68
[2019-07-10] MEDS ORDERED: RAMELTEON 8 MG TAB (ROZEREM) PO SCH (22:00)
[2019-07-11] MEDS: IPRATROPIUM 0.5MG/ALBUTEROL 2.5MG INH SOL UD 3ML (DUONEB)(J7620) NEB SCH ×3 (03:11→11:14)
[2019-07-11] MEDS: methylPREDNISolone INJ 125 MG/2 ML VIAL (J2930) IV SCH (04:11)
[2019-07-11 05:52] LABS: BASO % 0.1 % (0.0-1.0); HEMATOCRIT 41.8 % (42.0-52.0); MEAN CORPUSCULAR HEMOGLOBIN 31.4 pg (27.0-33.0); MEAN CORPUSCULAR HGB CONC 33.5 g/dl (32.0-36.5); MEAN CORPUSCULAR VOLUME 93.7 fl (80.0-96.0); MONO # 0.6 10^3/uL (0.0-0.8); MONO % 4.6 % (0.0-5.0); NEUTROPHILS # 11.9 10^3/uL (1.5-8.5); NEUTROPHILS % 87.6 % (36.0-66.0); PLATELET COUNT, AUTOMATED 231 10^3/uL (150-450); RED BLOOD COUNT 4.46 10^6/uL (4.30-6.10); WHITE BLOOD COUNT 13.6 10^3/uL (4.0-10.0)
[2019-07-11 06:00] VITALS: BP 129/81
[2019-07-11 06:13] LABS: BLOOD UREA NITROGEN 22 MG/DL (7-18); CALCIUM LEVEL 8.2 MG/DL (8.5-10.1); CARBON DIOXIDE LEVEL 26 MEQ/L (21-32); CHLORIDE LEVEL 107 MEQ/L (98-107); CREATININE FOR GFR 0.87 MG/DL (0.70-1.30); GLOMERULAR FILTRATION RATE > 60.0 (>56); GLUCOSE, FASTING 217 MG/DL (70-100); POTASSIUM SERUM 3.9 MEQ/L (3.5-5.1); SODIUM LEVEL 143 MEQ/L (136-145)
[2019-07-11] MEDS: FLUTICASONE HFA 110 MCG 12 GM INHALER (FLOVENT) INH SCH (07:21)
[2019-07-11] MEDS ORDERED: predniSONE 20 MG TAB PO SCH (09:00)
[2019-07-11] MEDS: MONTELUKAST 10 MG TAB PO SCH (09:36)
--- NOTE | 2019-07-11 09:54 | ECHO ---
DATE OF STUDY: 07/09/2019 REFERRING PHYSICIAN: Dr. Guerra INDICATION: Dyspnea. HEIGHT: 178 cm. WEIGHT: 98 kg. DIMENSIONS: IVS: 1.2 LV: 4.5 LVPW: 1.2 LA: 2.9 Aorta: 3.0 IVC: 1.8 Mitral E wave velocity: 88 A wave: 75 E prime septal: 10.1 E prime lateral: 10.4 FINDINGS: The study is of technical quality corresponding to the patient's body habitus. The patient is in sinus rhythm. Left ventricle is normal size and normal contractility, estimated ejection fraction (EF) is around 60-65%. I do not appreciate any segmental wall motion abnormalities based on fair visualization. Mild left ventricular hypertrophy (LVH) is noted. The right ventricle is normal size and systolic function. Both atria appear normal. All four cardiac valves were reasonably well seen and appear normal. No pericardial effusion is noted. Inferior vena cava is normal size and appropriately collapses with inspiration corresponding to normal central venous pressure. Aortic root and aortic arch appear normal, abdominal aorta was not well visualized. Doppler interrogation reveals competent mitral, aortic, tricuspid and pulmonic valves. Mitral inflow pattern and tissue Doppler imaging of mitral annulus reveal normal diastolic function. CONCLUSIONS: 1. Study is of fair technical quality, the patient is in sinus rhythm. 2. Normal LV size with normal LV systolic function and probably normal diastolic function. Mild LVH. 3. No valvular disease. 4. Normal central venous pressure. 5. Unable to estimate pulmonary artery pressure, but no indications of pulmonary hypertension. COMMENT: Subacute bacterial endocarditis (SBE) prophylaxis is not recommended. Essentially normal echocardiogram, but for LVH, not providing obvious answers for dyspnea.
--- NOTE | 2019-07-11 14:31 | IPN ---
DATE OF SERVICE: 07/10/2019 The patient says that his breathing is much improved overnight. He still continues to have occasional wheezing. No dyspnea on exertion, chest pain, pressure or tightness. He still continues to have cough productive of white thick sputum. No consolidation or infiltrate on x-ray. The patient has some mediastinal and hilar lymphadenopathy of uncertain etiology with recommendation for 3 to 6 month followup as outpatient. Currently, no nausea or vomiting. No fever or chills overnight. Temperature 98.1, pulse 98, respiratory rate 19, blood pressure 141/80, 92% on room air. Generally awake, alert, oriented to person, place and time. Answering questions appropriately. No conversational dyspnea. The patient is able to speak in full sentences. No jugular venous distention (JVD) or thyromegaly. Some missing teeth, but moist mucous membranes. Lungs are clear. Diminished, but with occasional faint expiratory wheezing. Improved significantly, improved from yesterday. Heart: S1, S2. Sinus rhythm. Abdomen soft, obese, nontender, nondistended, positive bowel sounds times four quadrants. No rebound or guarding. No hepatosplenomegaly. No abdominal bruit. Extremities: No cyanosis or clubbing. LABORATORY DATA: White count 9.7, hemoglobin 15, hematocrit 44, platelet count 255. Sodium 139, potassium 3.6, chloride 106, bicarbonate 26, BUN 20, creatinine 0.89, glucose of 204. Blood culture negative after 24 hours. Sputum culture pending. Respiratory panel negative. COVID-[address] of chest shows prominent mediastinal and hilar lymphadenopathy of uncertain etiology. Recommend followup in 3-6 months. ASSESSMENT AND PLAN: This is a 53-year-old male with history of diet controlled diabetes, obesity with body mass index (BMI) of 30.9, hypertension not on medications, with prior history of smoking three packs a day with no diagnosis of chronic obstructive pulmonary disease or emphysema as he has missed his appointment last year for PFTs at [facility] and who has not requested a subsequent appointment, who presented with worsening shortness and breath and wheezin, found to have reactive airway disease, most likely secondary to chronic obstructive pulmonary disease which is new onset versus asthma. The patient has responded well to nebulizer treatments, Solu-Medrol, and supplemental oxygen. The patient has been given Flovent. Clinically improving, but still with significant wheezing. May transition to oral prednisone in the morning with possible discharge if stable. The patient is currently 92% on room air. No antibiotics needed as there is no acute infection on the imaging studies. No fever or chills. Awaiting sputum culture result. The patient will need PFTs and referral to [facility]. Mediastinal and hilar lymphadenopathy. Repeat CT of chest as outpatient. Obesity. BMI of 31. Prior history of diabetes. A1c is elevated at 7.1, will need to have a repeat A1c or another fasting metabolic panel in the morning. However, patient may be developing steroid induced hyperglycemia here which would be an inaccurate diagnosis at this time, therefore, will defer to primary care physician to recheck as outpatient. History of dyslipidemia. Currently with LDL of 146. Patient would prefer not to take any medications. Therefore will defer to primary care to recheck in 3 months time after diet and exercise. Deep vein thrombosis (DVT) prophylaxis with compression stockings. DISPOSITION: Discharge in the morning if stable overnight after transitioning to oral prednisone in the morning. MTDD
--- NOTE | 2019-07-13 10:47 | DSES ---
DATE OF ADMISSION: 07/09/2019 DATE OF DISCHARGE: 07/11/2019 PRIMARY DISCHARGE DIAGNOSES: 1. Reactive airway disease. 2. Incidental finding of mediastinal and hilar lymphadenopathy which will require repeat CT chest and referral to [facility] for further workup. 3. Prior history of smoking, [id number] history, currently nonsmoker. 4. Obesity, body mass index (BMI) of 30.9. 5. Prior history of diabetes, currently with a 7.1 A1c. The patient is to have a repeat A1c or fasting glucose to confirm diabetes. 6. Steroid-induced leukocytosis. DISCHARGE MEDICATIONS: - prednisone taper - albuterol ProAir HFA two puffs every 4 - QVAR two puffs twice a day - montelukast 10 daily DISCHARGE INSTRUCTIONS: The patient is to be seen by his primary care physician this week in order to refer to [facility] for pulmonary function tests (PFTs) and further evaluation of the mediastinal and hilar lymphadenopathy. To recheck the patient's A1c or fasting glucose to confirm diabetes. HOSPITAL COURSE: This is a 53-year-old male, prior history of smoking, 30-pack years, quit many years ago, presented with 3-week history of dyspnea on exertion. Dyspnea was initially noted when he was raking some leaves. Treated with albuterol and antibiotics as outpatient by urgent care. Presents with worsening symptoms. The patient was found to be 89% on room air. Chest x-ray showed no acute infiltrate. He had overt wheezing on examination and admitted for reactive airway disease. The patient says that he was due to have PFTs done last year but missed the appointment as he was helping his sister who was diagnosed at that time with cancer. He has not had any followup with PFTs or [facility] referral since then. He was admitted for reactive airway disease. Responded well to intravenous (IV) Solu-Medrol and nebulizer treatments. CT chest to rule out pulmonary embolism (PE) was negative, but he did have findings of prominent mediastinal and hilar lymphadenopathy of unknown etiology with recommendations for repeat CT chest in 3-6 months for followup. The patient was instructed to have a pulmonary referral as outpatient. He did well and remained 94% to 97% on room air. Wheezing had improved. He was transitioned to oral prednisone. He passed a home safety evaluation and was subsequently discharged home. Evaluation included negative respiratory panel. Sputum culture was still pending. Blood cultures were negative. COVID-19 was negative. He did develop steroid-induced leukocytosis, for which there were no clinical implications. He was afebrile. Cardiac markers were negative. The patient did have A1c checked, which was 7.1. Due to steroids in his systems, we could not diagnose him with diabetes and will require a second occasion where A1c or fasting glucose would have to be abnormal to diagnose with diabetes. The patient was subsequently discharged home in stable condition. PHYSICAL EXAMINATION ON DISCHARGE: 97.6, pulse 88, respiratory rate 20, blood pressure 129/81, 94% on room air. Generally, the patient is awake, alert, oriented times three, answering questions appropriately. Lungs are clear to auscultation. No wheezing, rales, or rhonchi. Heart: S1, S2, sinus rhythm. Abdomen is obese, soft, nontender, nondistended. Extremities: No cyanosis or clubbing. LABORATORY DATA: White count 13.6, hemoglobin 14, hematocrit 41, platelet count 231. Sodium 143, potassium 3.9, chloride 107, bicarbonate 26, BUN 22, creatinine 0.87, glucose of 217. Two sets of blood cultures negative. Sputum culture pending. Respiratory panel pending. COVID-[address] chest: Mild prominent mediastinal and hilar adenopathy of unknown etiology. Consider short-term 3-6-month followup reevaluation. TIME SPENT ON DISCHARGE: 30 minutes.
== END 2019-07-11 12:09 | disposition home or self-care (01) | DRG 141 ==
LOC: M ED 08:41 → M ED INP 12:48 → ENRESERV 14:39 → M MSPAV 15:52
PROVIDERS: ADMIT General Practice; ATTEND General Practice
DX: J45.901 Unspecified asthma with (acute) exacerbation (principal); I10 Essential (primary) hypertension; E11.9 Type 2 diabetes mellitus without complications; E66.9 Obesity, unspecified; Z87.891 Personal history of nicotine dependence; D72.829 Elevated white blood cell count, unspecified; Z68.30 Body mass index [BMI] 30.0-30.9, adult

== ENCOUNTER → 2019-08-02 | Outpatient (REF) | payer OTHER ==
[~2019-08-02] MED LIST changes: +FLUT11IN INH; +MONT10TA4 PO; +PRED10TA2 PO; +QVAR40AE12 INH
[2019-08-08 11:07] LABS: ASPERGILLUS FUMIGATUS AB Negative (Negative); AUREOBASIDIUM PULLULANS Negative (Negative); MICROPOLYSPORA FAENI AB Negative (Negative); PIGEON SERUM AB Negative (Negative); THERMOACTINOMYCES SACCHARI Negative (Negative); THERMOACTINOMYCES VULGARIS Negative (Negative)
== END ==
LOC: M LAB REF 16:39
PROVIDERS: ATTEND Internal Medicine Pulmonary Disease
DX: R91.8 Other nonspecific abnormal finding of lung field (principal)

== ENCOUNTER → 2019-08-23 | Outpatient (CLI) | payer MEDICAID, OTHER ==
[~2019-08-23] MED LIST changes: +METHACHOLINE KIT (J7674) INH ONE
== END ==
LOC: M CARPUL 07:20
PROVIDERS: ATTEND Internal Medicine Pulmonary Disease
DX: R06.00 Dyspnea, unspecified (principal); Z53.9 Procedure and treatment not carried out, unspecified reason

== ENCOUNTER → 2019-09-01 | Outpatient (REF) | payer OTHER ==
[~2019-09-01] MED LIST changes: -METHACHOLINE KIT (J7674) INH ONE
[2019-09-01 18:07] LABS: BASO % 0.4 % (0.0-1.0); EOS # 0.1 10^3/uL (0.0-0.5); EOS % 1.2 % (0.0-3.0); HEMATOCRIT 44.1 % (42.0-52.0); HEMOGLOBIN 14.4 g/dl (13.5-17.5); LYMPH # 3.2 10^3/uL (1.5-5.0); LYMPH % 39.6 % (24.0-44.0); MEAN CORPUSCULAR HGB CONC 32.7 g/dl (32.0-36.5); MONO # 0.6 10^3/uL (0.0-0.8); MONO % 7.6 % (0.0-5.0); NEUTROPHILS # 4.1 10^3/uL (1.5-8.5); NEUTROPHILS % 50.7 % (36.0-66.0); PLATELET COUNT, AUTOMATED 240 10^3/uL (150-450); RED BLOOD COUNT 4.64 10^6/uL (4.30-6.10); WHITE BLOOD COUNT 8.2 10^3/uL (4.0-10.0)
[2019-09-08 12:11] LABS: D001-IgE D pteronyssinus <0.10 kU/L (Class 0); E001-IgE Cat Epith/Dander < 0.10 kU/L (Class 0); E005-IgE Dog Dander < 0.10 kU/L (Class 0); G002-IgE Bermuda Grass < 0.10 kU/L (Class 0); G008-IgE Kentucky Bluegrass < 0.10 kU/L (Class 0); M001-IgE Penicillium chrysogen < 0.10 kU/L (Class 0); M002 IgE Cladosporium herbaru < 0.10 kU/L (Class 0); M003 IgE Aspergillus fumigatu < 0.10 kU/L (Class 0); M006-IgE Alternaria alternata < 0.10 kU/L (Class 0); T001-IgE Maple/Box Elder < 0.10 kU/L (Class 0); T003-IgE Common Silver Birch < 0.10 kU/L (Class 0); T006-IgE Cedar, Mountain < 0.10 kU/L (Class 0); T007-IgE Oak, White < 0.10 kU/L (Class 0); T008-IgE Elm, American < 0.10 kU/L (Class 0); T015-IgE Ash, White < 0.10 kU/L (Class 0); T041-IgE Hickory, White < 0.10 kU/L (Class 0); T070-IgE White Mulberry < 0.10 kU/L (Class 0); W001-IgE Ragweed, Short < 0.10 kU/L (Class 0); W009-IgE Plantain, English < 0.10 kU/L (Class 0); W014-IgE Pigweed, Rough < 0.10 kU/L (Class 0); W018-IgE Sheep Sorrel < 0.10 kU/L (Class 0)
== END ==
LOC: M LAB REF 17:05
PROVIDERS: ATTEND Internal Medicine Pulmonary Disease
DX: J45.40 Moderate persistent asthma, uncomplicated (principal)

== ENCOUNTER → 2020-01-26 | Outpatient (CLI) | payer OTHER ==
[~2020-01-26] MED LIST changes: +ISOVUE-370 76% 100ML VIAL As Ordered ONE
[2020-01-26 12:47] LABS: BLOOD UREA NITROGEN 19 MG/DL (7-18); CREATININE FOR GFR 0.86 MG/DL (0.70-1.30); GLOMERULAR FILTRATION RATE > 60.0 (>56)
--- NOTE | 2020-01-28 07:46 | REP ---
INDICATION: OTHER NONSPECIFIC ABN FINDINGS OF LUNG FIELD COMPARISON: 07/09/2019, 09/25/2018 TECHNIQUE: Axial contrast enhanced images from the thoracic inlet to the upper abdomen with coronal and sagittal reformations using 75 ml Isovue 370 intravenous contrast material. This CT examination was performed using the following dose reduction techniques: Automated exposure control, adjustment of mA and/or kv according to the patient's size, and use of iterative reconstruction technique. FINDINGS: The bilateral lung moran are relatively well aerated and clear with minimal posterior basilar dependent changes noted. No consolidation, suspicious nodule or mass lesion. No pleural effusion or pneumothorax. Tracheobronchial tree is patent. No axillary, hilar, or mediastinal adenopathy (previously noted adenopathy on 07/09/2019 has resolved). Minimal atherosclerotic changes to the thoracic aorta and coronary arteries noted without aortic aneurysm, dissection or cardiomegaly. No pericardial effusion. Surrounding musculoskeletal structures are intact and without acute osseous abnormality. Limited upper abdomen demonstrates normal bilateral adrenal glands along with hepatosteatosis. IMPRESSION: 1. Normal contrast-enhanced chest CT. No acute mediastinal or pleuroparenchymal process. No adenopathy. 2. Hepatosteatosis. <Electronically signed by Geo Cueva > 01/28/20 [id number]
== END ==
LOC: M RAD 10:15
PROVIDERS: ATTEND Internal Medicine Pulmonary Disease
DX: R91.8 Other nonspecific abnormal finding of lung field (principal); K76.0 Fatty (change of) liver, not elsewhere classified; I70.0 Atherosclerosis of aorta
CPT/HCPCS: 36415; 71260; 82565; 84520; Q9967

== ENCOUNTER → 2020-01-26 | Outpatient (CLI) | payer OTHER ==
[~2020-01-26] MED LIST changes: -ISOVUE-370 76% 100ML VIAL As Ordered ONE
[2020-01-26 13:13] LABS: HEMOGLOBIN A1c 6.4 %
== END ==
LOC: M LAB 10:17
PROVIDERS: ATTEND Student in an Organized Health Care Education/Training Program
DX: E11.9 Type 2 diabetes mellitus without complications (principal)

== ENCOUNTER → 2020-02-10 | Outpatient (CLI) | payer OTHER, SELFPAY ==
[~2020-02-10] MED LIST changes: +ATOR1TAB21 PO; +FLUT1INH3 INH; +METF10004 PO; -MONT10TA4 PO; +MONT5TAB2 PO
== END ==
LOC: M LABSMTC 11:30
PROVIDERS: ATTEND Anesthesiology
DX: Z01.812 Encounter for preprocedural laboratory examination (principal); Z20.828 Contact with and (suspected) exposure to other viral communicable diseases

== ENCOUNTER 2020-02-15 08:50 | Day surgery (SDC) | payer OTHER ==
[~2020-02-15] VITALS: Ht 177.8 cm; Wt 93.0 kg
[~2020-02-15 08:50] MED LIST changes: +NS 1,000 ML IV ONE
[2020-02-15] MEDS ORDERED: propofoL 200 MG/20 ML VIAL As Ordered ONE ×2 (10:27→10:49)
[2020-02-15] MEDS ORDERED: LIDOCAINE 2% 100MG/5ML SDV (FOR ANES.) As Ordered ONE (10:27)
--- NOTE | 2020-02-15 10:59 | ROOR ---
Patient Name: Everett Pearson Procedure Date: 02/15/2020 10:38 AM Date of : 1965 Age: 54 Room: [facility] Gender: Male Note Status: Finalized Procedure: Colonoscopy Indications: Screening for colorectal malignant neoplasm Providers: DO Aleena Gramajo MD: Rashmi Millery-1 Franck Requesting Provider: Medicines: Propofol per Anesthesia Complications: No immediate complications. Procedure: Pre-Anesthesia Assessment: - Prior to the procedure, a History and Physical was performed, and patient medications and allergies were reviewed. The patient is competent. The risks and benefits of the procedure and the sedation options and risks were discussed with the patient. All questions were answered and informed consent was obtained. Patient identification and proposed procedure were verified by the physician, the nurse, the associate consulting engineer and the profile grinder technician in the endoscopy suite. Mental Status Examination: alert and oriented. Airway Examination: normal oropharyngeal airway and neck mobility. Respiratory Examination: clear to auscultation. CV Examination: normal. ASA Grade Assessment: II - A patient with mild systemic disease. After reviewing the risks and benefits, the patient was deemed in satisfactory condition to undergo the procedure. The anesthesia plan was to use monitored anesthesia care (MAC). Immediately prior to administration of medications, the patient was re-assessed for adequacy to receive sedatives. The heart rate, respiratory rate, oxygen saturations, blood pressure, adequacy of pulmonary ventilation, and response to care were monitored throughout the procedure. The physical status of the patient was re-assessed after the procedure. The Colonoscope was introduced through the anus and advanced to the cecum, identified by appendiceal orifice and ileocecal valve. The colonoscopy was performed without difficulty. The patient tolerated the procedure well. Findings: Non-bleeding internal hemorrhoids were found during retroflexion. The hemorrhoids were Grade I (internal hemorrhoids that do not prolapse). Multiple small-mouthed diverticula were found in the entire colon. Estimated blood loss: none. Impression: - Non-bleeding internal hemorrhoids. - Diverticulosis in the entire examined colon. - No specimens collected. Recommendation: - Patient has a contact number available for emergencies. The signs and symptoms of potential delayed complications were discussed with the patient. Return to normal activities tomorrow. Written discharge instructions were provided to the patient. - Repeat colonoscopy in 5-10 years for screening purposes. - Return to my office PRN. Procedure Code(s): --- Professional --- G0121, Colorectal cancer screening; colonoscopy on individual not meeting criteria for high risk Diagnosis Code(s): --- Professional --- Z12.11, Encounter for screening for malignant neoplasm of colon K64.0, First degree hemorrhoids K57.30, Diverticulosis of large intestine without perforation or abscess without bleeding CPT copyright 2019 [employer]. All rights reserved. The codes documented in this report are preliminary and upon foundry metallurgist review may be revised to meet current compliance requirements. Ric Luis DO 02/15/2020 10:58:39 AM Electronically signed by Ric Luis DO Number of Addenda: 0 Note Initiated On: 02/15/2020 10:38 AM Estimated Blood Loss: Estimated blood loss: none.
[2020-02-15 11:25] VITALS: BP 120/73
== END 2020-02-15 11:36 | disposition home or self-care (01) ==
LOC: M OPP 08:50
PROVIDERS: ATTEND Surgery
DX: Z12.11 Encounter for screening for malignant neoplasm of colon (principal); K57.30 Diverticulosis of large intestine without perforation or abscess without bleeding; K64.8 Other hemorrhoids; Z79.84 Long term (current) use of oral hypoglycemic drugs; Z79.899 Other long term (current) drug therapy; Z87.891 Personal history of nicotine dependence

== ENCOUNTER → 2024-01-28 | Outpatient (REF) | payer OTHER ==
[~2024-01-28] MED LIST changes: +ARTIDRO4 OP; -FLUT11IN INH; +FLUT12AE6 INH; +MONT10TA97 PO; -MONT5TAB2 PO; -NS 1,000 ML IV ONE; -POLYOPD OP
== END ==
LOC: M LAB REF 12:14
PROVIDERS: ATTEND Nurse Practitioner Family
DX: R30.0 Dysuria (principal); R31.9 Hematuria, unspecified

== ENCOUNTER → 2025-02-11 | Outpatient (REF) | payer OTHER ==
[2025-02-11 18:31] LABS: APPEARANCE, URINE CLOUDY (CLEAR); BACTERIA, URINE AUTO 1+ (NEGATIVE); BILIRUBIN, URINE AUTO NEGATIVE (NEGATIVE); BLOOD, URINE BLOOD 3+ (NEGATIVE); GLUCOSE, URINE (UA) AUTO 3+ mg/dL (NEGATIVE); KETONE, URINE AUTO NEGATIVE (NEGATIVE); LEUKOCYTE ESTERASE, URINE AUTO 2+ (NEGATIVE); MUCUS, URINE SMALL (NEGATIVE); NITRITE, URINE AUTO NEGATIVE (NEGATIVE); PROTEIN, URINE AUTO 2+ mg/dL (NEGATIVE); RBC, URINE AUTO TNTC /HPF (0-3); SPECIFIC GRAVITY URINE AUTO 1.033 (1.002-1.035); SQUAMOUS EPITHELIAL CELL UR AU 0 /HPF (0-6); UROBILINOGEN, URINE AUTO 0.2 mg/dL (0.0-2.0); WBC, URINE AUTO TNTC /HPF (0-3)
== END ==
LOC: M LAB REF 09:09
DX: N39.0 Urinary tract infection, site not specified (principal)